=== PATIENT | male | born 1975 | race Native Hawaiian/Other Pacific Islander ===

== ENCOUNTER 2017-02-23 10:52 | Emergency (ER) | payer OTHER ==
[~2017-02-23] VITALS: Ht 162.6 cm; Wt 76.7 kg
[2017-02-23 11:05] VITALS: BP 136/89
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
--- NOTE | 2017-02-23 11:53 | NUR ---
Dr. Khan evaluating patient at bedside.
--- NOTE | 2017-02-23 12:01 | NUR ---
PT TO XRAY VIA W/C ACCOMPANIED BY SEWING DEPARTMENT SUPERVISOR
--- NOTE | 2017-02-23 12:10 | NUR ---
PT RETURNED TO XRAY VIA W/C ACCOMPANIED BY MEDICAL SALES REPRESENTATIVE; PT TO [facility] WITHOUT INCIDIENT
[2017-02-23 13:22] VITALS: BP 143/97
--- NOTE | 2017-02-23 13:22 | NUR ---
Patient discharged with BP 143/95 DENIES HEADACHE OR DIZINESS AT THIS TIME. Written and verbal after care instructions given and explained. Patient alert, oriented and verbalized understanding of instructions. Ambulatory with steady gait. All questions addressed prior to discharge. ID band removed. Patient advised to follow up with PMD. Rx of IBUPROFEN & NORCO given. Patient educated on indication of medication including possible reaction and side effects. Opportunity to ask questions provided and answered.
== END 2017-02-23 13:22 | disposition home or self-care (01) ==
LOC: MED 10:52
DX: S13.4XXA Sprain of ligaments of cervical spine, initial encounter (principal); F31.9 Bipolar disorder, unspecified; Z88.0 Allergy status to penicillin; V43.52XA Car driver injured in collision with other type car in traffic accident, initial encounter; Y93.I9 Activity, other involving external motion; Y92.488 Other paved roadways as the place of occurrence of the external cause; Y99.8 Other external cause status
CPT/HCPCS: 72050; 99284